=== PATIENT | male | born 1985 | race Caucasian/White ===

== ENCOUNTER 2016-10-08 10:56 | Emergency (ER) | payer OTHER ==
--- NOTE | ~2016-10-08 | US67 ---
[facility] A Service of [facility] & [facility] RADIOLOGY TEXT RESULTS PATIENT: LOLI BEAR III LOCATION: [facility] : 87 UNIT #: [id number] AGE: [address]: Ahmet Astudillo DO SEX: M ORDER DR: [id number] [facility] [address] [place], [place] [address] [id number] E MR#: [id number] Acc #: [id number] NAME: LOLI BEAR III : 1985 SEX: M STUDY DATE/TIME: 10/08/2016 15:19 UNIT: [facility] ROOM: STUDY DESCRIPTION: Gallbladder Attending Physician: Ahmet Astudillo D.O. Ordering Physician: Ahmet Astudillo D.O. Primary Care Physician: Primary Care Physician No MEDICAL IMAGING REPORT This report is preliminary unless electronic signature is present EXAM Ultrasound gallbladder, 10/08/2016 HISTORY Pain. Right upper quadrant pain, nausea and vomiting 2 months. Worse over the past 2 months. FINDINGS Real-time ultrasonography of the right upper quadrant performed. Comparison to CT examination from earlier on the same date. Visualized pancreas unremarkable but much of the pancreas is obscured by bowel gas artifact. Pancreas appeared normal on earlier CT examination. The liver is diffusely increased in echogenicity consistent with fatty infiltration as seen on earlier CT examination. No suspicious focal hepatic parenchymal abnormality is seen. The gallbladder is normal in volume. No gallstones or pericholecystic fluid. No gallbladder wall thickening. Gallbladder wall measures about 2.6 mm in thickness. No intrahepatic biliary ductal dilatation. [facility] has measured extrahepatic common duct as 5-6 mm in diameter. I believe this is an overestimation. The common bile duct on CT examination earlier today was normal in appearance measuring about 4 mm in diameter with no obstructing process seen and no intrahepatic biliary ductal dilatation. The right kidney measures 10.49 cm in greatest length. No hydronephrosis or nephrolithiasis. No cystic or solid mass lesion and no perinephric fluid collection. IMPRESSION 1. Please see today's earlier CT examination for additional evaluation. There is diffuse fatty infiltration of the liver without suspicious focal abnormality seen. 2. Gallbladder unremarkable. 3. There is no compelling evidence of biliary ductal dilatation. The sales audit clerk has measured the extrahepatic duct as approximately 5-6 STS. [facility] A Service of [facility] RADIOLOGY TEXT RESULTS PATIENT: LOLI BEAR III LOCATION: [facility] : 87 UNIT #: [id number] AGE: [address]: Ahmet Astudillo DO SEX: M ORDER DR: arcelia but I believe this is in accurate. CT examination performed approximately an hour earlier showed normal caliber extrahepatic duct at 4 mm in diameter with no obstructing process suggested. 4. Right kidney normal. 5. Visualized pancreas unremarkable with some portions obscured by bowel gas artifact. Pancreas appeared normal on earlier CT examination. Dictated by... Ishaan López M.D. THIS IS AN ELECTRONICALLY VERIFIED REPORT Ishaan López M.D. at 10/09/2016 2:37 PM YANNICK/john TD: 10/09/2016 04:54 JOB #: [id number] MEDICAL IMAGING REPORT Page 1 of 1 COPY
--- NOTE | ~2016-10-08 | CT2 ---
[facility] A Service of [facility] & [facility] RADIOLOGY TEXT RESULTS PATIENT: LOLI BEAR III LOCATION: [facility] : 87 UNIT #: [id number] AGE: [address]: Ahmet Astudillo DO SEX: M ORDER DR: [id number] [facility] [address] [place], [place] [address] [id number] E MR#: [id number] Acc #: [id number] NAME: LOLI BEAR III : 1985 SEX: M STUDY DATE/TIME: 10/08/2016 UNIT: [facility] ROOM: STUDY DESCRIPTION: CT Abd and Pelv W Cont Attending Physician: Ahmet Astudillo D.O. Ordering Physician: Ahmet Astudillo D.O. Primary Care Physician: Primary Care Physician No MEDICAL IMAGING REPORT This report is preliminary unless electronic signature is present EXAM CT abdomen and pelvis with contrast 10/08/2016 1358 hours HISTORY 31-year-old man with intermittent vomiting for 2 months. History of seizure disorder and large amount of alcohol consumption. Patient complains of bilateral abdominal pain worse on the left than on the right for 2 years. COMPARISON Abdominal series 05/17/2015. No prior CT scan. TECHNIQUE Dynamic helical CT images were obtained from the lung bases through the pubic symphysis with intravenous contrast only. Sagittal and coronal reconstructions were performed. Contrast was Isovue-370, 100 mL IV. Total exam DLP 478 mGy-cm. This CT exam was performed with one or more of the following radiation dose reduction techniques: automatic exposure control, adjustment of mA and/or kV according to patient size, and iterative reconstruction. FINDINGS Images through the lung bases are clear. There are no effusions. No nodules. The distal esophagus appears normal. Images through the abdomen demonstrate a normal-sized liver which is markedly low in density most likely representing diffuse fatty infiltration. The spleen is normal in size and density. The pancreas is normal. The gallbladder demonstrates no stones, sludge or wall thickening. The adrenal glands are normal. The kidneys enhance normally with no mass or stone. There is no ureterectasis. The abdominal aorta is normal in caliber. STS. [facility] A Service of [facility] & [facility] RADIOLOGY TEXT RESULTS PATIENT: LOLI BEAR III LOCATION: [facility] : 87 UNIT #: [id number] AGE: [address]: Ahmet Astudillo DO SEX: M ORDER DR: The stomach is contracted. No definite wall thickening is seen although evaluation is limited by the contracted state and the lack of oral contrast. There is no small bowel distension or small bowel wall thickening. The terminal ileum is normal. There is no evidence of appendicitis. There is no colonic distension or colonic wall thickening seen. The colon is predominately decompressed. CT pelvis is negative. IMPRESSION 1. There is marked diffuse low attenuation throughout the liver consistent with steatosis. No focal liver lesion is seen. 2. The gallbladder is mildly distended. There is no gallbladder wall thickening, sludge, stone or pericholecystic fluid. The bile ducts are normal. There is no splenomegaly or ascites. 3. The stomach, small bowel, and colon are predominately decompressed. The bowel is unopacified. There is no definite wall thickening seen. 4. No adenopathy or ascites. Dictated by... Sandra Chu M.D. THIS IS AN ELECTRONICALLY VERIFIED REPORT Sandra Cuh M.D. at 10/09/2016 9:31 AM Reyna TD: 10/08/2016 15:49 JOB #: [id number] MEDICAL IMAGING REPORT Page 1 of 1 COPY
[~2016-10-08 10:56] MED LIST: MEDROL PO; OMEPRAZOLE40 M1 PO; PREVACID PO
[2016-10-08 11:32] LABS: BASOPHIL% 0.5 % (0-2.5); EOSINOPHIL% 0.4 % (0.0-7.0); HEMATOCRIT 45.3 % (38.0-50.0); HEMOGLOBIN 15.4 gm/dL (13.0-16.0); LYMPHOCYTE% 13.4 % (17.0-45.0); MEAN CELL VOLUME 107.8 FL (83-96); MEAN CORPUSCULAR HEMOGLOBIN 36.7 PG (28-34); MEAN PLATELET VOLUME 8.1 FL (6.5-11.5); MONOCYTE# 0.5 X10e3 (0-1.0); MONOCYTE% 7.4 % (3.0-12.0); NEUTROPHIL# 5.7 X10e3 (1.5-7.1); NEUTROPHIL% 78.3 % (40-75); PLATELET COUNT 154 X10e3 (140-420); RED CELL DISTRIBUTION WIDTH 17.5 % (11.0-15.5); WHITE BLOOD COUNT 7.3 X10e3 (4.0-10.5)
[2016-10-08 11:33] LABS: DIFF IND YES
[2016-10-08 11:47] LABS: PARTIAL THROMBOPLASTIN TIME 25.9 SECONDS (23.5-31.3); PROTHROMBIN TIME (PATIENT) 10.8 SECONDS (9.6-11.5)
[2016-10-08 11:55] LABS: ANISOCYTOSIS SL; PLATELET ESTIMATE NORMAL (NORMAL); RBC NORMAL YES
[2016-10-08 12:14] LABS: URINE SOURCE CLEAN CATCH
[2016-10-08 12:14] LABS: BILIRUBIN, DIRECT 0.8 mg/dL (0.0-0.2); BILIRUBIN,INDIRECT 1.4 mg/dL (0.0-0.9); BILIRUBIN,TOTAL 2.2 mg/dL (0.2-2.0); CALCIUM SERUM 8.8 mg/dL (8.4-10.2); CREATININE SERUM 0.6 mg/dL (0.6-1.4); GLOM FILT RATE Estimated 135.9 mL/min (>60); MAGNESIUM 1.5 mg/dL (1.6-3.0); PROTEIN TOTAL SERUM 8.2 g/dL (6.0-8.3)
[2016-10-08 12:47] LABS: CULTURE INDICATED? YES; URINE APPEARANCE CLOUDY; URINE BACTERIA AUWI 1+ (NEGATIVE); URINE BLOOD NEG (NEG); URINE COLOR DK YELLOW; URINE GLUCOSE NEG (NEG); URINE KETONE 3+ (NEG); URINE LEUKOCYTE ESTERASE TRACE (NEG); URINE NITRATE NEG (NEG); URINE PROTEIN TRACE (NEG); URINE SPECIFIC GRAVITY 1.026 (1.003-1.035); URINE SQUAMOUS EPITHELIAL CELL FEW /[HPF]
[2016-10-08 13:01] LABS: URINE BILIRUBIN POS (NEG)
[2016-10-08 13:33] LABS: AMPHETAMINE NEG (NEG); BARBITURATES NEG (NEG); BENZODIAZEPINES NEG (NEG); COCAINE NEG (NEG); MARIJUANA POS (NEG); OPIATES NEG (NEG); TRICYCLIC ANTIDEPRESSANTS NEG (NEG); U METHADONE NEG (NEG)
[2016-10-08 17:14] LABS: POC - CKMB <1.0 ng/mL (0.0-7.9); POC - TROPONIN <0.05 ng/mL (<=0.05)
== END 2016-10-08 17:28 | disposition home or self-care (01) ==
LOC: CED 10:56
PROVIDERS: Emergency Medicine
DX: R10.11 Right upper quadrant pain (principal); E87.1 Hypo-osmolality and hyponatremia; I10 Essential (primary) hypertension; F10.10 Alcohol abuse, uncomplicated; B19.20 Unspecified viral hepatitis C without hepatic coma; F32.9 Major depressive disorder, single episode, unspecified; Y90.9 Presence of alcohol in blood, level not specified
CPT/HCPCS: 36415; 74177; 76705; 80048; 80076; 80307; 81003; 82553; 83690; 83735; 84484; 85025; 85610; 85730; 86850; 86900; 86901; 87086; 96361; 96365; 96375; 99284; J2405; J3475; Q9967

== ENCOUNTER 2016-12-25 09:27 | Inpatient (IN) | payer OTHER ==
--- NOTE | ~2016-12-25 | OR ---
Unit #: [id number] #: [id number] Patient: LOLI BEAR III [id number] [address] [address] [id number] I MR#: [id number] NAME: LOLI BEAR ROOM: 461 Date of Procedure: 12/26/2016 Admission Date: 12/25/2016 Surgeon: Edgar Nicholas M.D. : 1985 Attending Physician: Mercy Ferrari M.D. Primary Care Physician: Primary Care Physician No OPERATIVE REPORT PROCEDURE PERFORMED Esophagogastroduodenoscopy with biopsy. INDICATIONS FOR PROCEDURE The patient with hematemesis, history of heavy alcohol use, alcoholic hepatitis, possible cirrhosis. MEDICATIONS Monitored anesthesia. POSTOPERATIVE FINDINGS 1. LA grade B esophagitis with several small ulcers in the distal esophagus. 2. Hiatal hernia. 3. Severe gastropathy from chronic alcohol use. Biopsies taken looking for H pylori. 4. Normal duodenum and distal duodenum. PLAN Continue PPI therapy. Watch H and H. DESCRIPTION OF PROCEDURE The patient was explained of the procedure, risks, and benefits along with risks and benefits of anesthesia. He was brought to the endoscopy room. Propofol anesthesia was given. Bite block was placed. The scope was passed down the mouth into the esophagus, stomach, duodenum, and distal duodenum. Findings as described. Biopsies taken. Gently, I pulled the scope out of the patient's mouth. He tolerated it well. Dictated by... Abhay Vallejo/kendall TD: 12/26/2016 11:53 JOB #: [id number] Unit #: [id number] #: [id number] Patient: LOLI BEAR III OPERATIVE REPORT Page 1 of 1 X Edgar Nicholas MD PROCEDURE OPERATIVE NOTE
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
--- NOTE | ~2016-12-25 | US6 ---
[facility] A Service of [facility] RADIOLOGY TEXT RESULTS PATIENT: LOLI BEAR III LOCATION: [facility] 461- : 87 UNIT #: [id number] AGE: [address]: Karen Gomez MD SEX: M ORDER DR: [id number] [place] [id number] [facility]. [place], [place] [address] [id number] I MR#: [id number] Acc #: [id number] NAME: LOLI BEAR III : 1985 SEX: M STUDY DATE/TIME: 12/25/2016 14:19 UNIT: [facility] ROOM: [facility] STUDY DESCRIPTION: US Abdominal Limited Attending Physician: Karen Gomez M.D. Ordering Physician: Karen Gomez M.D. Primary Care Physician: Primary Care Physician No MEDICAL IMAGING REPORT This report is preliminary unless electronic signature is present EXAM Right upper quadrant ultrasound INDICATIONS Right upper quadrant pain for 1 week. TECHNIQUE Caraballo-scale and color Doppler sonographic images were obtained through the right upper quadrant. FINDINGS The pancreas cannot be seen due to overlying bowel gas. This also limits evaluation of structures within the right upper quadrant. Liver is enlarged and is steatotic which limits penetration. Stones and sludge are seen within the gallbladder and there is some gallbladder wall thickening measuring up to about 7 mm in thickness. I do not see any definite pericholecystic fluid. Right kidney is normal appearance with no solid or cystic renal masses seen. IMPRESSION 1. I think the patient does have some sludge within the gallbladder; this actually probably was present on the prior examination, but was more difficult to see. There is also some apparent gallbladder wall thickening with the gallbladder wall measuring up to about 7 mm in thickness, although I do not see any definite pericholecystic fluid. Possibility of acute cholecystitis cannot be excluded. Correlation with clinical presentation is suggested. HIDA scan could allow for further clarification. 2. Hepatomegaly and diffuse hepatic steatosis. Dictated by... Evelin Covarrubias M.D. [facility] A Service of [facility] RADIOLOGY TEXT RESULTS PATIENT: LOLI BEAR III LOCATION: [place] [address] : [birth year] UNIT #: [id number] AGE: [address]: Karen Gomez MD SEX: M ORDER DR: THIS IS AN ELECTRONICALLY VERIFIED REPORT Evelin Covarrubias M.D. at 12/26/2016 7:32 AM AFF/to TD: 12/25/2016 19:04 JOB #: [id number] MEDICAL IMAGING REPORT Page 1 of 1 COPY
--- NOTE | ~2016-12-25 | DS ---
Unit #: [id number] #: [id number] Patient: LOLI BEAR III [id number] [facility] [place] [facility]. [place], [place] [address] [id number] I MR#: [id number] NAME: LOLI BEAR III ROOM: 461 Age: 31 Sex: M Admission Date: 12/25/2016 : 1985 Discharge Date: 12/27/2016 Attending Physician: Mercy Ferrari M.D. Primary Care Physician: Primary Care Physician No DISCHARGE SUMMARY Please note, the patient left AMA. HISTORY OF PRESENT ILLNESS/HOSPITAL COURSE The patient was originally admitted secondary to nausea, vomiting, and abdominal pain. He is a 31-year-old gentleman with underlying history of hepatitis secondary to hepatitis C as well as alcohol abuse, and peptic ulcer disease. In the past, he has used IV drugs as well as substance abuse. He states over the past six months, he had an increased alcohol abuse secondary to difficulty with sleeping. He has drank an excessive amount for approximately 10 to 12 years. Please refer to H and P for complete details. He was subsequently admitted secondary to intractable abdominal pain and nausea. He underwent an ultrasound of his abdomen on 12/25/2016, which raise the possibility of some sludge within the gallbladder and HIDA scan was recommended, and therefore consultation was placed to both [facility] as well as [facility]. The patient ultimately underwent a HIDA scan on the morning of 12/27/2016, which showed an abnormal HIDA scan with nonvisualization of the gallbladder. Findings could represent either acute or chronic cholecystitis. In regard to the same, [facility] were set to reevaluate the patient. Ultimately, the patient elected that he did not want any surgeries; no longer wanted any medical care; stated that he could go home and drink coconut water and take some vitamins and he would feel much better. Also noted through this hospital course, the patient had undergone an ultrasound and upper GI endoscopy, which did show severe gastropathy from chronic alcohol use, esophagitis as well, and a hiatal hernia was noted. Unfortunately, the patient elected to leave AMA on the afternoon of 01/05/2017 after extensive counseling in regard to his overall condition. He did exhibit severe anxiety and evidence of some withdrawal symptoms secondary to alcohol abuse. Again, he was counseled on numerous occasions to stay for ongoing therapy, but he elected to leave against medical advice. Unit #: [id number] #: [id number] Patient: LOLI BEAR III FINAL DISCHARGE DIAGNOSES 1. Acute/chronic cholecystitis. 2. Alcohol abuse. 3. Anxiety/depression. 4. Abdominal pain. 5. Nausea and vomiting. 6. Prior history of substance abuse. 7. Hepatitis C. 8. Prior history of IV drug abuse. DISCHARGE MEDICATIONS Unknown as the patient left AMA. CONDITION ON DISCHARGE Overall long-term prognosis of this patient is poor as he lacks insight into his disease process as well as the severity of his drinking and/or alcohol abuse. Dictated by... Abhay Mcginnis/kendall TD: 12/30/2016 08:07 JOB #: [id number] DISCHARGE SUMMARY Page 1 of 1 X Mercy Ferrari MD X DISCHARGE SUMMARY
--- NOTE | ~2016-12-25 | HP ---
Unit #: [id number] #: [id number] Patient: LLOI BEAR III [id number] [place], [place] [address] [id number] MR#: [id number] NAME: LOLI BEAR III ROOM: Age: 31 Sex: M Admission Date: 12/25/2016 : 1985 Attending Physician: Tam Kang M.D. Primary Care Physician: No Primary Care Physician HISTORY AND PHYSICAL CHIEF COMPLAINT Nausea, vomiting, abdominal pain. HISTORY OF PRESENT ILLNESS The patient is a 31-year-old male with a past medical history of hepatitis secondary to hepatitis C and alcohol abuse, peptic ulcer disease, IV drug use. He presented to the emergency department for evaluation of the above. The patient states that he had a two to three month history of abdominal pain and vomiting. He describes the abdominal pain as "bloating." He states that he vomited bright red blood. He denies any blood in the stool or black tarry stool. No diarrhea. No change in his weight. He initially denied endoscopy, but it sounds like he may have had some type of scope 10 years ago when he was diagnosed with peptic ulcer disease and underwent some type of surgical repair for perforated peptic ulcer. Of note, the patient is a daily drinker. He states that he has cut back from drinking a fifth of alcohol daily to drinking four 25 ounce beers daily. His last drink was on the morning of admission, around 3 a.m. In the emergency department initial pulse and blood pressure were 100 and 123/86 respectively. He was noted to be Hemoccult positive. Hemoglobin is 14.4. Platelets are 121. Ammonia level is 64. Potassium is 2.8, AST and ALT are 229 and 66 respectively. Alkaline phosphatase is 221. Total bilirubin 11.7. He was given 1 liters of normal saline as well as thiamine, multivitamin, folic acid and 1 mg of Ativan. Additionally he received 80 mg of Protonix and a total of 50 mEq of potassium. He has been admitted to [facility] for evaluation and further treatment. PAST MEDICAL HISTORY 1. Admission to [facility] 07/24/2015 through 07/26/2015 for alcohol detox. 2. History of peptic ulcer disease. Hospitalized at [facility] about 10 years ago. 3. Hepatitis secondary to hepatitis C and alcohol abuse. PAST SURGICAL HISTORY 1. Surgical repair perforated peptic ulcer. 2. Wrist surgery. SOCIAL HISTORY The patient livers with a roommate. He was drinking a fifth of alcohol daily, but states that he cut back over the past month to four 25 ounce Unit #: [id number] #: [id number] Patient: LOLI BEAR III beers daily. He has a history of IV drug use including heroin, but states his last IV drug use was 18 months ago. He states that he does smoke marijuana occasionally. 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 He smokes three to four cigarettes daily. FAMILY HISTORY Notable for his mother dying at the age of 39 of alcoholic cirrhosis. His dad has hepatitis C and hypertension. ALLERGIES No known drug allergies. HOME MEDICATIONS None. REVIEW OF SYSTEMS A complete review of systems is negative except as indicated in the history of present illness. PHYSICAL EXAMINATION GENERAL: The patient is a male who is awake and alert. He appears older than his stated age. He smells of alcohol. VITALS: Temperature 98.3, pulse 100, respiratory rate 16, blood pressure 123/86, oxygen saturation 100% on room air. HEENT: The head is atraumatic. Sclerae are icteric. NECK: Supple. Trachea midline. LUNGS: Clear to auscultation bilaterally with no increased work of breathing. HEART: Regular rate and rhythm. ABDOMEN: Soft. He is tender to palpation epigastric region. Bowel sounds are present in all four quadrants. RECTAL: Hemoccult positive per my discussion with the emergency room staff. EXTREMITIES: Nontender with no pedal edema. NEUROLOGIC: The patient is oriented times three. He follows commands. PSYCHIATRIC: The patient is somewhat anxious, but he is cooperative. SKIN: Spider angiomata involving the upper chest. DIAGNOSTIC STUDIES LABORATORY: CMP notable for sodium 128, potassium 2.8, chloride 86 (1) 33. BUN and creatinine less than 5 and 0. 5 respectively. Calcium 7. 9, but corrects when albumin of 2. 7 is accounted for. AST and ALT are 279 and 66 respectively. Alkaline phosphatase is 221, total bilirubin 11.7 with 6.1 direct and 5.6 indirect. Lipase is 25. Blood alcohol level is 61. CBC notable for MCV 102.7, platelets 121, ammonia level 64. Urinalysis shows 1+ leukocyte esterase, positive nitrate, trace protein, positive bile, 1+ blood with 10-25 white blood cells. ASSESSMENT The patient is a 31-year-old male with 1. GI bleed. The patient's hemoglobin is 14.4. He received 80 mg of Protonix in the emergency department. He likely had endoscopy about 10 years ago at [facility]. 2. Abdominal pain. 3. Hepatitis secondary to alcohol abuse and hepatitis C. 4. Jaundice with total bilirubin of 11.7. 5. Hepatic encephalopathy with an ammonia level of 64. 6. Thrombocytopenia with a platelet count of 121. Platelets have Unit #: [id number] #: [id number] Patient: LOLI BEAR III previously been normal. 7. Alcohol abuse with last drink being this morning. 8. The patient does have a history of withdrawal seizures. 9. History of IV drug use with last use being 18 months ago. 10. History of peptic ulcer disease. 11. Tobacco abuse. PLAN 1. Admit to intermediate level. 2. N.p.o. except for medications. 3. Protonix drip at 8 mg per hour. 4. Hemoglobin and hematocrit q.[address] Nicholas regarding GI bleed. 6. Get endoscopy report from [facility]. 7. Librium 25 mg p.o. q.6 h. with first dose now. 8. Alcohol withdrawal protocol. 9. community association manager and social work consult regarding alcohol abuse. 10. Right upper quadrant ultrasound for further evaluation of jaundice and hepatitis. 11. Lactulose 30 ml q.4 h. 12. Check magnesium level. 13. Potassium/magnesium protocol. 14. Urine tox screen. 15. Neurologic checks. 16. P.r.n. Zofran. 17. Repeat labs in the morning, including INR, magnesium and ammonia levels. 18. SCDs for DVT prophylaxis. 19. Additional workup and consultants based on the above. Dictated by Karen Gomez M.D. Sally TD: 12/25/2016 13:58 JOB #: [id number] HISTORY AND PHYSICAL Page 1 of 1 X Karen Gomez MD X HISTORY AND PHYSICAL
--- NOTE | ~2016-12-25 | NM22 ---
[facility] A Service of [facility] RADIOLOGY TEXT RESULTS PATIENT: LOLI BEAR III LOCATION: [place] [address] : [birth year] UNIT #: [id number] AGE: [address]: Mercy Ferrari MD SEX: M ORDER DR: [id number] [place] [id number] [facility]. [place], [place] [address] [id number] I MR#: [id number] #: [id number] NAME: LOLI BEAR III : 1985 SEX: M STUDY DATE/TIME: 12/27/2016 7:42 UNIT: [facility] ROOM: [facility] STUDY DESCRIPTION: NM Hepatobiliary W GB Pharm Attending Physician: Mercy Ferrari M.D. Ordering Physician: Doe Trujillo M.D. Primary Care Physician: Primary Care Physician No MEDICAL IMAGING REPORT This report is preliminary unless electronic signature is present EXAM Hepatobiliary scan HISTORY 31-year-old male bloating for 1-1/2 weeks, vomiting, diarrhea for the last 2-3 days. COMPARISON Abdominal sonogram, 12/25/2016 FINDINGS Dynamic imaging was performed of the right upper quadrant following the intravenous administration of 5.42 mCi technetium 99m Choletec. Examination demonstrates normal hepatic uptake at 15 minutes. Small bowel activity noted at 45 minutes. Non-visualization of the gallbladder out to 2 hours. Findings nonspecific but in the appropriate clinical setting would be compatible with acute cholecystitis. Similar findings could also be seen with chronic cholecystitis. No evidence of biliary obstruction. IMPRESSION Abnormal hepatobiliary scan with non-visualization of the gallbladder out to 2 hours. Though nonspecific, findings could represent either acute or chronic cholecystitis in the appropriate clinical setting. No evidence of biliary obstruction or hepatic dysfunction. Dictated by... Erin Hatfield M.D. THIS IS AN ELECTRONICALLY VERIFIED REPORT Erin Hatfield M.D. at 12/31/2016 9:29 AM Sherlyn [facility] A Service of [facility] RADIOLOGY TEXT RESULTS PATIENT: LOLI BEAR III LOCATION: [facility] 461-01 : [birth year] UNIT #: [id number] AGE: [address]: Mercy Ferrari MD SEX: M ORDER DR: TD: 12/27/2016 13:07 JOB #: [id number] MEDICAL IMAGING REPORT Page 1 of 1 COPY
[2016-12-25 11:05] LABS: BASOPHIL% 0.8 % (0-2.5); EOSINOPHIL# 0.1 X10e3 (0-0.7); EOSINOPHIL% 1.2 % (0.0-7.0); HEMATOCRIT 40.8 % (38.0-50.0); HEMOGLOBIN 14.4 gm/dL (13.0-16.0); LYMPHOCYTE# 1.2 X10e3 (1.0-3.5); LYMPHOCYTE% 20.4 % (17.0-45.0); MEAN CELL VOLUME 102.7 FL (83-96); MEAN CORPUSCULAR HEMOGLOBIN 36.3 PG (28-34); MEAN CORPUSCULAR HGB CONC 35.3 g/dL (30-36); MEAN PLATELET VOLUME 8.4 FL (6.5-11.5); MONOCYTE# 0.7 X10e3 (0-1.0); MONOCYTE% 11.6 % (3.0-12.0); NEUTROPHIL# 3.8 X10e3 (1.5-7.1); RED BLOOD COUNT 3.97 X10e (3.90-5.60); RED CELL DISTRIBUTION WIDTH 15.4 % (11.0-15.5); WHITE BLOOD COUNT 5.8 X10e3 (4.0-10.5)
[2016-12-25 11:20] LABS: ALBUMIN SERUM 2.7 g/dL (3.5-5.0); ALKALINE PHOSPHATASE 221 U/L (32-92); ALT (SGPT) 66 U/L (10-40); AST (SGOT) 279 U/L (10-42); BILIRUBIN, DIRECT 6.1 mg/dL (0.0-0.2); BILIRUBIN,INDIRECT 5.6 mg/dL (0.0-0.9); BILIRUBIN,TOTAL 11.7 mg/dL (0.2-2.0); CALCIUM SERUM 7.9 mg/dL (8.4-10.2); CARBON DIOXIDE 33 mmol/L (22-31); CHLORIDE 80 mmol/L (100-111); CREATININE SERUM 0.5 mg/dL (0.6-1.4); GLOM FILT RATE Estimated 146.5 mL/min (>60); GLUCOSE FASTING 100 mg/dL (70-110); LIPASE 25 U/L (22-51); PROTEIN TOTAL SERUM 7.6 g/dL (6.0-8.3); SODIUM 128 mmol/L (135-145)
[2016-12-25 11:22] LABS: BLOOD UREA NITROGEN <5 mg/dL (9-23)
[2016-12-25 11:23] LABS: POTASSIUM 2.8 mmol/L (3.5-5.1)
[2016-12-25 11:27] LABS: URINE SOURCE CLEAN CATCH
[2016-12-25 11:31] LABS: URINE APPEARANCE CLOUDY; URINE BLOOD 1+ (NEG); URINE COLOR ORANGE; URINE GLUCOSE NEG (NEG); URINE KETONE NEG (NEG); URINE LEUKOCYTE ESTERASE 1+ (NEG); URINE NITRATE POS (NEG); URINE PH 5.5 (5-8); URINE PROTEIN TRACE (NEG); URINE SPECIFIC GRAVITY 1.015 (1.003-1.035)
[2016-12-25 11:34] LABS: CULTURE INDICATED? YES; URINE BACTERIA AUWI NEG (NEGATIVE); URINE SQUAMOUS EPITHELIAL CELL NONE SEEN /[HPF]
[2016-12-25 11:35] LABS: DIFF IND YES; PLATELET COUNT 121 X10e3 (140-420)
[2016-12-25 11:52] LABS: ANISOCYTOSIS SL; PLATELET ESTIMATE DECREASED (NORMAL)
[2016-12-25 11:53] LABS: TARGET CELLS SL
[2016-12-25 11:54] LABS: SMUDGE CELLS 15 /100
[2016-12-25 12:04] LABS: URINE BILIRUBIN POS (NEG)
[2016-12-25 12:07] LABS: URINE MUCUS PRESENT
[2016-12-25 12:09] LABS: U HYALINE CASTS AUWI 0-2 /[LPF]
[2016-12-25] MEDS ORDERED: NO MEDICATIONS (12:44)
[2016-12-25 16:11] LABS: AMPHETAMINE NEG (NEG); BARBITURATES NEG (NEG); BENZODIAZEPINES POS (NEG); COCAINE NEG (NEG); MARIJUANA POS (NEG); OPIATES NEG (NEG); TRICYCLIC ANTIDEPRESSANTS NEG (NEG); U METHADONE NEG (NEG)
[2016-12-25 17:35] LABS: HEMATOCRIT 38.5 % (38.0-50.0); HEMOGLOBIN 13.3 gm/dL (13.0-16.0)
[2016-12-25 19:55] LABS: THYROID STIMULATING HORMONE 2.57 uIU/ml (0.34-5.60)
[2016-12-25 20:02] LABS: FREE THYROXIN (T4) 1.07 ng/dL (0.58-1.64)
[2016-12-25 22:29] LABS: HEMATOCRIT 39.4 % (38.0-50.0); HEMOGLOBIN 13.4 gm/dL (13.0-16.0)
[2016-12-26 03:10] LABS: ALBUMIN SERUM 2.3 g/dL (3.5-5.0); ALKALINE PHOSPHATASE 187 U/L (32-92); ALT (SGPT) 56 U/L (10-40); AST (SGOT) 230 U/L (10-42); BILIRUBIN,TOTAL 12.8 mg/dL (0.2-2.0); BLOOD UREA NITROGEN <5 mg/dL (9-23); CALCIUM SERUM 7.3 mg/dL (8.4-10.2); CARBON DIOXIDE 32 mmol/L (22-31); CHLORIDE 93 mmol/L (100-111); CREATININE SERUM 0.4 mg/dL (0.6-1.4); GLOM FILT RATE Estimated 160.6 mL/min (>60); GLUCOSE FASTING 141 mg/dL (70-110); MAGNESIUM 1.6 mg/dL (1.6-3.0); PROTEIN TOTAL SERUM 6.8 g/dL (6.0-8.3); SODIUM 131 mmol/L (135-145)
[2016-12-26 04:36] LABS: BASOPHIL% 0.7 % (0-2.5); EOSINOPHIL# 0.1 X10e3 (0-0.7); EOSINOPHIL% 2.7 % (0.0-7.0); HEMATOCRIT 37.1 % (38.0-50.0); HEMOGLOBIN 12.7 gm/dL (13.0-16.0); LYMPHOCYTE# 0.7 X10e3 (1.0-3.5); MEAN CELL VOLUME 105.3 FL (83-96); MEAN CORPUSCULAR HGB CONC 34.1 g/dL (30-36); MEAN PLATELET VOLUME 8.9 FL (6.5-11.5); MONOCYTE# 0.4 X10e3 (0-1.0); MONOCYTE% 10.4 % (3.0-12.0); NEUTROPHIL# 2.7 X10e3 (1.5-7.1); NEUTROPHIL% 69.2 % (40-75); RED BLOOD COUNT 3.52 X10e (3.90-5.60); RED CELL DISTRIBUTION WIDTH 15.4 % (11.0-15.5); WHITE BLOOD COUNT 3.9 X10e3 (4.0-10.5)
[2016-12-26 04:49] LABS: INR 1.5; PROTHROMBIN TIME (PATIENT) 16.6 SECONDS (10.0-11.7)
[2016-12-26 04:52] LABS: DIFF IND YES; PLATELET COUNT 80 X10e3 (140-420)
[2016-12-26 04:54] LABS: ANISOCYTOSIS SL; PLATELET ESTIMATE DECREASED (NORMAL); SMUDGE CELLS 3 /100
[2016-12-26 10:14] LABS: HEMATOCRIT 38.4 % (38.0-50.0); HEMOGLOBIN 13.2 gm/dL (13.0-16.0)
[2016-12-26 16:25] LABS: HEMOGLOBIN 13.2 gm/dL (13.0-16.0)
[2016-12-26 17:47] LABS: FOLATE (FOLIC ACID) >23.3 ng/mL (>5.8)
[2016-12-27 03:23] LABS: BASOPHIL% 0.6 % (0-2.5); EOSINOPHIL# 0.1 X10e3 (0-0.7); EOSINOPHIL% 3.1 % (0.0-7.0); HEMATOCRIT 35.9 % (38.0-50.0); HEMOGLOBIN 12.3 gm/dL (13.0-16.0); LYMPHOCYTE# 0.8 X10e3 (1.0-3.5); LYMPHOCYTE% 19.7 % (17.0-45.0); MEAN CELL VOLUME 105.6 FL (83-96); MEAN CORPUSCULAR HEMOGLOBIN 36.2 PG (28-34); MEAN CORPUSCULAR HGB CONC 34.3 g/dL (30-36); MEAN PLATELET VOLUME 8.8 FL (6.5-11.5); MONOCYTE# 0.5 X10e3 (0-1.0); MONOCYTE% 12.1 % (3.0-12.0); NEUTROPHIL# 2.6 X10e3 (1.5-7.1); NEUTROPHIL% 64.5 % (40-75); PLATELET COUNT 83 X10e3 (140-420); RED CELL DISTRIBUTION WIDTH 15.4 % (11.0-15.5)
[2016-12-27 03:26] LABS: DIFF IND NO
[2016-12-27 03:57] LABS: ALBUMIN SERUM 2.2 g/dL (3.5-5.0); ALKALINE PHOSPHATASE 170 U/L (32-92); ALT (SGPT) 45 U/L (10-40); AST (SGOT) 166 U/L (10-42); BILIRUBIN,TOTAL 11.7 mg/dL (0.2-2.0); CALCIUM SERUM 7.1 mg/dL (8.4-10.2); CARBON DIOXIDE 27 mmol/L (22-31); CHLORIDE 101 mmol/L (100-111); CREATININE SERUM 0.3 mg/dL (0.6-1.4); GLOM FILT RATE Estimated 180.7 mL/min (>60); GLUCOSE FASTING 142 mg/dL (70-110); LIPASE 23 U/L (22-51); MAGNESIUM 1.8 mg/dL (1.6-3.0); PHOSPHOROUS 1.4 mg/dL (2.5-4.6); PROTEIN TOTAL SERUM 6.5 g/dL (6.0-8.3); SODIUM 133 mmol/L (135-145)
[2016-12-27 03:59] LABS: BLOOD UREA NITROGEN <5 mg/dL (9-23); BUN/CREATININE RATIO 16.66
[2016-12-27 04:01] LABS: AMYLASE 6 U/L (0-46); POTASSIUM 2.6 mmol/L (3.5-5.1)
== END 2016-12-27 17:21 | disposition left against medical advice (07) | DRG 445 ==
LOC: CED 09:27 → C4C 13:30 → CEDOF 13:30 → CED 14:04 → CEDOF 14:04 → C4C 16:05
PROVIDERS: Emergency Medicine; Family Medicine; Internal Medicine; Specialist
PROC: 0DB68ZX Excision of Stomach, Via Natural or Artificial Opening Endoscopic, Diagnostic (ICD-10-PCS; principal; 2016-12-26 11:07)
DX: K81.0 Acute cholecystitis (principal); K22.10 Ulcer of esophagus without bleeding; D69.59 Other secondary thrombocytopenia; K70.30 Alcoholic cirrhosis of liver without ascites; F10.239 Alcohol dependence with withdrawal, unspecified; K81.1 Chronic cholecystitis; F41.9 Anxiety disorder, unspecified; F32.9 Major depressive disorder, single episode, unspecified; F10.20 Alcohol dependence, uncomplicated; F12.10 Cannabis abuse, uncomplicated; F17.210 Nicotine dependence, cigarettes, uncomplicated; Z81.1 Family history of alcohol abuse and dependence; Z82.49 Family history of ischemic heart disease and other diseases of the circulatory system; K72.90 Hepatic failure, unspecified without coma; K44.9 Diaphragmatic hernia without obstruction or gangrene; K31.84 Gastroparesis; K70.10 Alcoholic hepatitis without ascites; E87.6 Hypokalemia
CPT/HCPCS: 36415; 76705; 78227; 80048; 80053; 80076; 80307; 81003; 82140; 82150; 82607; 82746; 82747; 83690; 83735; 84100; 84132; 84439; 84443; 85014; 85018; 85025; 85610; 86592; 87086; 88305; 88312; 96365; 96375; 99291; A9537; C9113; G0480; J2060; J2250; J2405; J3411; J3475; J7042

== ENCOUNTER 2017-01-05 21:03 | Inpatient (IN) | payer OTHER ==
[~2017-01-05] VITALS: Ht 172.7 cm; Wt 76.0 kg
--- NOTE | ~2017-01-05 | HP ---
Unit #: [id number] #: [id number] Patient: LOLI BEAR III [id number] [place] [id number] [facility]. [place], [place] [address] [id number] I MR#: [id number] NAME: LOLI BEAR ROOM: [address] Age: 31 Sex: M Admission Date: 01/05/2017 : 1985 Attending Physician: Baljinder Castaneda M.D. Primary Care Physician: Rina Davishead HISTORY AND PHYSICAL CHIEF COMPLAINT Shortness of breath, hypotension, abdominal pain, shortness of breath. DISCUSSION This is a 31-year-old gentleman who has a past medical history of hepatitis, secondary to hepatitis C, alcohol abuse, peptic ulcer disease, anxiety, depression, previous history of substance abuse. He was recently admitted here on 12/25/2016 with chief complaint of nausea, vomiting, and abdominal pain. The patient subsequently had a workup ultrasound on 12/25/2016, which shows the possibility of some sludge within the gallbladder. Also on HIDA scan on 12/27/2016, which showed abnormal HIDA scan with nonvisualization of gallbladder, findings consistent with either acute or chronic cholecystitis and he also has an EGD by Dr. Nicholas, which shows that patient has esophagitis, a small ulcer in the distal esophagus, hiatal hernia, severe gastropathy, unfortunately the patient left the hospital against medical advice on 12/27/2016. He presented today to the emergency room by EMS with chief complaint of having not feeling very well, shortness of breath, abdominal pain, hypotension, disease, falling. He was found to be hypotensive, started on Neosporin drip. Belly is distended. His whole body looks icterus and being admitted in the ICU. The patient has already been seen by Dr. Riddle from critical care consult, which I appreciated and patient is going to be admitted to ICU. He is complaining of shortness of breath. At this time he is on Ventimask, oxygen, but he is alert, awake x3, answering the questions. He is complaining of shortness of breath, abdominal pain, abdominal distention, chest pain and generalized feeling weak, fatigued, tired, fell at home with near syncope. He said he drank only half a beer today. PAST MEDICAL HISTORY 1. History of admission to [facility] in 08/09/2015 for alcohol tox. 2. History of peptic ulcer disease. 3. History of hepatitis secondary to hepatitis C and alcohol abuse. 4. History of anxiety and depression. 5. History of substance abuse. 6. Recent HIDA scan on 12/27/2016 shows acute versus chronic cholecystitis. 7. EGD on 12/26/2016, shows esophagitis and a small ulcer in the distal esophagus/hiatal hernia/severe gastropathy from chronic ETOH abuse. PAST SURGICAL HISTORY 1. History of surgical repair for perforated peptic ulcer. 2. Wrist surgery. Unit #: [id number] #: [id number] Patient: LOLI BEAR III SOCIAL HISTORY The patient lives with a roommate. He was drinking a fifth of alcohol daily. He had been drinking excessive alcohol for the last 10 to 12 years. He had a history of IV drug use including heroin in the past but he says he has not been using for 18 months. He stated that he does smoke marijuana occasionally and smokes 3 to 4 cigarettes daily. 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 FAMILY HISTORY Notable for mother dying at age 39 of alcohol cirrhosis. She does have hepatitis C and hypertension. ALLERGIES No known drug allergy. HOME MEDICATIONS Review of systems negative, except for history of present illness. PHYSICAL EXAMINATION GENERAL: Young man lying in mild respiratory distress. male who is alert, awake, appeared older than his age. VITAL SIGNS: Current vitals are following: Temperature 97.5, heart rate 111, respiratory rate 16, blood pressure is 77/52, oxygen is at 88% on 4 L. HEENT: Head is atraumatic. Sclerae icteric. Whole body skin is icteric. NECK: Supple. No JVD. LUNGS: Decreased air entry bilaterally. HEART: S1, S2, regular rate and rhythm. ABDOMEN: Distended. Diffuse tenderness. Decrease bowel sound. EXTREMITIES: No cyanosis, no clubbing, no edema. NEUROLOGIC: He is alert and oriented x4. He is following commands. Moving extremities. SKIN: Spider angiomata involving the upper chest wall. PSYCH: Normal mood and affect. DIAGNOSTIC STUDIES IMAGING STUDIES: CT scan of abdomen shows hepatomegaly, splenomegaly, ascites. in the gallbladder, suspected gallbladder sludge. CT chest shows large bilateral pleural effusions. LABORATORY STUDIES: Today is following: His white count is 4, hemoglobin 12, hematocrit 36, platelet is 126. Troponin is less than 0.0. ABG shows pH 7.34, pO2 63, oxygen is 87% saturation. Other blood test is pending at the time of dictation. ASSESSMENT AND PLAN 1. Jaundice. 2. Hypotension, possible sepsis. 3. Will continue Neosporin drip. Start empirically on the IV Zosyn. 4. Questionable peritonitis with ascites. 5. Large bilateral pleural fluid effusion. 6. Acute hypoxia. Continue oxygen to keep respiratory mode a 90. 7. Recent abdominal HIDA scan, acute versus chronic cholecystitis. Start the patient on IV Zosyn. 8. History of hepatitis secondary to hepatitis C. 9. Alcohol abuse. Unit #: [id number] #: [id number] Patient: LOLI BEAR III 10. Peptic ulcer disease. 11. Anxiety and depression. 12. Previous history of polysubstance abuse. 13. History of recent EGD on 12/26/2016. 14. Esophagitis with similar ulcer in distal esophagus/hiatal hernia/severe gastropathy from chronic alcohol abuse. PLAN To admit in the ICU and the critical care consult per Dr. Riddle, which has already been done and patient to continue Neosporin drip, oxygen to keep saturations more than 90 and also GI, Dr. Nicholas to see and evaluate. REPORT FAXED TO DR. CASTANEDA'S OFFICE ON 01/06/17 FOR COMPLETION. CD Dictated by Abhay Canales/giovanny TD: 01/06/2017 05:48 JOB #: [id number] HISTORY AND PHYSICAL Page 1 of 1 X X HISTORY AND PHYSICAL
--- NOTE | ~2017-01-05 | CO ---
Unit #: [id number] #: [id number] Patient: LOLI BEAR III [id number] [place] [id number] [facility]. [place], [place] [address] [id number] I MR#: [id number] NAME: LOLI BEAR ROOM: CICCU3 Age: 31 Sex: M Admission Date: 01/05/2017 : 1985 Attending Physician: Rex Cooper Primary Care Physician: Rina Gold [facility] Consultation Date: 01/05/2017 CONSULTATION REPORT We were asked to see him through Dr. Sharp. The reason is intensive care management and hypotension. HISTORY OF PRESENT ILLNESS Mr. Bear is a 31-year-old male, who apparently just left here AMA on 12/28/2016. He was originally admitted for hepatitis and 3-month history of abdominal pain, vomiting and "bloating." He had vomited some blood, but he did have an EGD by Dr. Nicholas and this revealed no varices, but he did have grade B esophagitis and some ulcers in the distal esophagus. He apparently was upset because he perceived that somebody was going to make him go to [facility] and he left AMA. He now comes back with recurrent complaints of abdominal discomfort and just feeling poorly. He has a history of hepatitis C. He previously drank, he said, about a fifth of vodka daily until 2 months ago and now just drinks 2 beers a day. He has had some nausea and vomiting. He did not say whether he was changing skin colors. PAST MEDICAL HISTORY Significant for IV drug use, alcoholism as mentioned, peptic ulcer disease, hepatitis C as mentioned. PAST SURGICAL HISTORY Includes surgical repair of a perforated peptic ulcer and wrist surgery. MEDICATIONS On admission apparently none. ALLERGIES I believe no known drug allergies. SOCIAL HISTORY He was smoking cigarette and apparently would smoke marijuana occasionally. He previously smoked a few cigarettes a day. FAMILY HISTORY Significant for cirrhosis in his mother and apparently she at age 39. REVIEW OF SYSTEMS He has leg swelling. He has abdominal swelling. He has shortness of air. All other systems are negative except as mentioned. PHYSICAL EXAMINATION GENERAL: He presents as a young middle-aged male, in no acute distress, but looking ill. Unit #: [id number] #: [id number] Patient: BEAR,LOLI E III VITAL SIGNS: Temperature is forthcoming, pulse 110, respirations 16, blood pressure 186/46. Saturation was 90% on 5 L. NECK: Without adenopathy. LUNGS: Reveals his breathing is mildly labored. He had decreased breath sounds bilaterally, particularly left base. HEART: Tachycardic. ABDOMEN: Protuberant. Bowel sounds are present. He does have some punctate petechial type lesions on his abdomen. EXTREMITIES: With about 1+ edema. SKIN: Yellow. His sclerae are yellow. NEUROLOGIC: He is awake, and answers questions. DIAGNOSTIC STUDIES LABORATORY RESULTS: His PT was 16.6, INR 1.5. His blood gas; 7.34, pCO2 of 35, pO2 of 63. BMP; his potassium of 2.6, his BUN less than 5, creatinine 0.3. His white blood cell count was 4.4, H and H 12.5, and 36, platelets 126,000. IMAGING STUDIES: Chest x-ray to my exam reveals low lung volumes bilaterally. He has what appears to be a left pleural effusion. I am not sure that he really has an infiltrate. IMPRESSION 1. Hypotension. Etiology is uncertain, but I think the best bet would be an infection and if so, would consider spontaneous bacterial peritonitis. This is based on his appearance of the abdomen. 2. Jaundice. 3. Alcoholism. 4. Hepatitis C. PLAN I would go ahead and continue the Zosyn that was started. I think that should cover for SBP. He probably is going to need some pressors. We can try cecille. I ultimately would like to see a paracentesis if indeed he has ascites. Right now, I think we can just titrate up his FiO2. I do not think he needs BiPAP because his pCO2 really is not elevated. So, it is just a matter of titrating his oxygen. I think his outlook is going to be poor if he cannot completely quit drinking and be compliant. Thank you very much for allowing me to participate in the care of this patient. Dictated by... Abhay Blackwell/kendall TD: 01/07/2017 00:00 JOB #: [id number] CC: Baljinder Sharp M.D. Unit #: [id number] #: [id number] Patient: LOLI BEAR III CONSULTATION REPORT Page 1 of 1 X Sergio Riddle MD CONSULTATION REPORT
--- NOTE | ~2017-01-05 | CT57 ---
[facility] A Service of [facility] RADIOLOGY TEXT RESULTS PATIENT: LOLI BEAR III LOCATION: CICCU3 CICCU3- : [birth year] UNIT #: [id number] AGE: [address]: LISA PETE V SEX: M ORDER DR: [id number] [facility] [address] [facility]. [place], [place] [address] [id number] I MR#: [id number] Acc #: [id number] NAME: LOLI BEAR III : 1985 SEX: M STUDY DATE/TIME: 01/05/2017 22:06 UNIT: CEDOF ROOM: 40004 STUDY DESCRIPTION: CT Chest Wo Cont Attending Physician: Lisa Pete Ordering Physician: Ahmet Astudillo D.O. Primary Care Physician: Rina Gold [facility] MEDICAL IMAGING REPORT This report is preliminary unless electronic signature is present EXAM CT chest without contrast INDICATION Generalized abdominal pain and shortness of air today. PROCEDURE Unenhanced CT of the chest. This CT exam was performed with one or more of the following radiation dose reduction techniques: Automatic exposure control, adjustment of mA and/or kV according to patient size, and iterative reconstruction. COMPARISON None. FINDINGS Large bilateral pleural effusions. Likely atelectasis in both lung bases, infiltrate not completely excluded. Cardiomegaly. No adenopathy. No aggressive appearing bone lesion. IMPRESSION 1. Large bilateral pleural effusions with opacity in both lung bases probably compressive atelectasis but infiltrate not completely excluded. 2. Refer to the separately dictated abdomen and pelvis CT for findings below the diaphragm. Dictated by... Devendra Pascual M.D. THIS IS AN ELECTRONICALLY VERIFIED REPORT Devendra Pascual M.D. at 01/06/2017 10:[address] [facility] A Service [facility] RADIOLOGY TEXT RESULTS PATIENT: LOLI BEAR III LOCATION: CICCUMary CICCU3- : [birth year] UNIT #: [id number] AGE: [address]: LISA PETE V SEX: M ORDER DR: Boyd TD: 01/06/2017 09:43 JOB #: [id number] MEDICAL IMAGING REPORT Page 1 of 1 COPY
--- NOTE | ~2017-01-05 | CR72 ---
[facility] A Service of [facility] RADIOLOGY TEXT RESULTS PATIENT: LOLI BEAR III LOCATION: CEDOF [address]-01 : [birth year] UNIT #: [id number] AGE: [address]: Baljinder Sharp MD SEX: M ORDER DR: [id number] [facility] [address] [place], [place] [address] [id number] I MR#: [id number] Acc #: [id number] NAME: LOLI BEAR III : 1985 SEX: M STUDY DATE/TIME: 01/05/2017 21:23 UNIT: CEDOF ROOM: 65[address] STUDY DESCRIPTION: CR Chest Single View Portable Attending Physician: Baljinder Sharp M.D. Ordering Physician: Ahmet Astudillo D.O. Primary Care Physician: Rina Gold [facility] MEDICAL IMAGING REPORT This report is preliminary unless electronic signature is present EXAM Single view chest INDICATION Shortness of air and chest pain. Hypertension for 1 day. FINDINGS Single portable AP view of the chest compared to 05/17/2015. Cardiac size is borderline enlarged. Lung volumes are low. There is bilateral pleural effusions with associated airspace opacities. No pneumothorax. IMPRESSION 1. Low lung volumes. 2. Bibasilar airspace opacities and pleural effusions. Dictated by... Bo Putnam M.D. THIS IS AN ELECTRONICALLY VERIFIED REPORT Bo Putnam M.D. at 01/06/2017 8:57 AM Oc TD: 01/06/2017 08:52 JOB #: [id number] MEDICAL IMAGING REPORT Page 1 of 1 COPY
--- NOTE | ~2017-01-05 | CR72 ---
[facility] A Service of [facility] RADIOLOGY TEXT RESULTS PATIENT: LOLI BEAR III LOCATION: CIC3 CICCU09-10 : [birth year] UNIT #: [id number] AGE: [address]: LISA PETE V SEX: M ORDER DR: [id number] [facility] [address] [place], [place] [address] [id number] I MR#: [id number] Acc #: [id number] NAME: LOLI BEAR III : 1985 SEX: M STUDY DATE/TIME: 01/06/2017 0:49 UNIT: CEDOF ROOM: 76898 STUDY DESCRIPTION: CR Chest Single View Portable Attending Physician: Lisa Pete Ordering Physician: Ahmet Astudillo D.O. Primary Care Physician: Rina Davishead MEDICAL IMAGING REPORT This report is preliminary unless electronic signature is present EXAM Portable chest INDICATION PICC line placement. PROCEDURE Frontal view chest. COMPARISON 01/05/2017 2123 hours. FINDINGS Right approach PICC line at the cavoatrial junction. No pneumothorax. Otherwise stable. IMPRESSION 1. Right approach PICC line is at the cavoatrial junction. No pneumothorax. 2. Persistent low lung volumes. Otherwise stable. Dictated by... Devendra Pascual M.D. THIS IS AN ELECTRONICALLY VERIFIED REPORT Devendra Pascual M.D. at 01/06/2017 10:03 PM EEDwight/lila TD: 01/06/2017 09:52 JOB #: [id number] MEDICAL IMAGING REPORT [facility] A Service of [facility] RADIOLOGY TEXT RESULTS PATIENT: LOLI BEAR III LOCATION: CICCU3 CICCU09-10 : [birth year] UNIT #: [id number] AGE: [address]: LISA PETE V SEX: M ORDER DR: Page 1 of 1 COPY
--- NOTE | ~2017-01-05 | CT4 ---
[facility] A Service of [facility] RADIOLOGY TEXT RESULTS PATIENT: LOLI BEAR III LOCATION: CICCU3 CICCU3 : [birth year] UNIT #: [id number] AGE: [address]: RAMBO PETEUJ V SEX: M ORDER DR: [id number] [facility] [address] [facility]. [place], [place] [address] [id number] I MR#: [id number] #: [id number] NAME: LOLI BEAR III : 1985 SEX: M STUDY DATE/TIME: 01/05/2017 22:13 UNIT: CEDOF ROOM: [id number] STUDY DESCRIPTION: CT Abd and Pelv Wo Cont Attending Physician: Baljinder Sharp M.D. Ordering Physician: Ahmet Astudillo D.O. Primary Care Physician: Rina [facility] IMAGING REPORT This report is preliminary unless electronic signature is present EXAM CT abdomen and pelvis without contrast INDICATION Generalized abdominal pain and jaundice today. PROCEDURE Unenhanced CT of the abdomen and pelvis. This CT examination was performed with one or more of the following radiation dose reduction techniques: automatic exposure control, adjustment of mA and/or kV according to patient size, and iterative reconstruction. COMPARISON 10/08/2016. FINDINGS Refer to separately dictated chest CT. ABDOMEN WITHOUT CONTRAST: Liver enlarged measuring 21.4 cm. Diffuse hepatic steatosis. Spleen measures 15.3 cm. Kidneys, adrenal glands, pancreas show no definite acute abnormality. There is high-attenuation material in the gallbladder. Bowel loops are nondilated. There is moderate to moderately large volume of ascites throughout the abdomen and pelvis. Appendix normal. PELVIS WITHOUT CONTRAST: No radiodense bladder calculus. No pelvic mass. No aggressive appearing bone lesion. IMPRESSION 1. Hepatomegaly and splenomegaly with diffuse steatosis. 2. Ascites throughout the abdomen and pelvis new compared with the prior. 3. High-attenuation material in the gallbladder, uncertain etiology. Possibly sludge. [facility] A Service [facility] RADIOLOGY TEXT RESULTS PATIENT: LOLI BEAR III LOCATION: CICCU3 CICCU3 : [birth year] UNIT #: [id number] AGE: [address]: LISA PETE V SEX: M ORDER DR: 4. Refer to the separately dictated CT of the chest for thoracic findings. Dictated by... Devendra Pascual M.D. THIS IS AN ELECTRONICALLY VERIFIED REPORT Devendra Pascual M.D. at 01/06/2017 10:03 PM JEANNINE/lila TD: 01/06/2017 09:19 JOB #: [id number] MEDICAL IMAGING REPORT Page 1 of 1 COPY
--- NOTE | ~2017-01-05 | EKG ---
PATIENT: LOLI BEAR UNIT #: [id number] Ventricular Rate: 106 BPM Atrial Rate: 106 BPM P-R Interval: 134 ms QRS Duration: 88 ms Q-T Interval: 338 ms QTC Calculation(Bezet): 448 ms P [place]: 0 degrees Calculated R [place]: -16 degrees Calculated T [place]: -10 degrees Diagnosis Line: Sinus tachycardia Diagnosis Line: Inferior infarct , age undetermined Diagnosis Line: Cannot rule out Anterior infarct , age Diagnosis Line: undetermined Diagnosis Line: Abnormal ECG Diagnosis Line: No previous ECGs available Diagnosis Line: Confirmed by CHRIS SMITH MD ([id number]) on Diagnosis Line: 01/06/2017 9:36:20 AM INTERPRETING MD: SARAH MARTÍNEZ
--- NOTE | ~2017-01-05 | CR72 ---
[facility] A Service of [facility] RADIOLOGY TEXT RESULTS PATIENT: LOLI BEAR III LOCATION: [place] [address]-21 : [birth year] UNIT #: [id number] AGE: [address]: LISA PETE V SEX: M ORDER DR: [id number] [facility] [address] [facility]. [place], [place] [address] [id number] I MR#: [id number] Acc #: [id number] NAME: LOLI BEAR III : 1985 SEX: M STUDY DATE/TIME: 01/06/2017 6:06 UNIT: [facility] ROOM: [facility] STUDY DESCRIPTION: CR Chest Single View Portable Attending Physician: Lisa Pete Ordering Physician: Ahmet Astudillo D.O. Primary Care Physician: Rina Das MEDICAL IMAGING REPORT This report is preliminary unless electronic signature is present EXAM Portable chest 01/06/2017 INDICATION Bilateral pleural effusions. Chest pain, shortness of air for 1 day. COMPARISON Earlier the same day. FINDINGS This portable view of the chest again shows very low lung volumes with what appear to be small bilateral effusions and bibasilar atelectasis. Heart size is normal. The PIC catheter is in good position. Dictated by... Jorje Borja M.D. THIS IS AN ELECTRONICALLY VERIFIED REPORT Jorje Borja M.D. at 01/06/2017 11:40 AM SHELIA/lila TD: 01/06/2017 10:43 JOB #: [id number] MEDICAL IMAGING REPORT Page 1 of 1 COPY
[~2017-01-05 21:03] MED LIST changes: +NO MEDICATIONS
[2017-01-05 21:37] LABS: BASOPHIL% 0.2 % (0-2.5); EOSINOPHIL% 0.3 % (0.0-7.0); HEMATOCRIT 36.6 % (38.0-50.0); HEMOGLOBIN 12.5 gm/dL (13.0-16.0); LYMPHOCYTE# 0.2 X10e3 (1.0-3.5); LYMPHOCYTE% 4.3 % (17.0-45.0); MEAN CELL VOLUME 106.2 FL (83-96); MEAN CORPUSCULAR HEMOGLOBIN 36.4 PG (28-34); MEAN CORPUSCULAR HGB CONC 34.3 g/dL (30-36); MEAN PLATELET VOLUME 9.7 FL (6.5-11.5); MONOCYTE# 0.1 X10e3 (0-1.0); MONOCYTE% 1.9 % (3.0-12.0); NEUTROPHIL# 4.1 X10e3 (1.5-7.1); NEUTROPHIL% 93.3 % (40-75); PLATELET COUNT 126 X10e3 (140-420); RED BLOOD COUNT 3.45 X10e (3.90-5.60); RED CELL DISTRIBUTION WIDTH 16.9 % (11.0-15.5); WHITE BLOOD COUNT 4.4 X10e3 (4.0-10.5)
[2017-01-05 21:40] LABS: DIFF IND YES
[2017-01-05 21:55] LABS: ARTERIAL BLOOD GAS CARBOXY HB 2.4 %sat (0.0-9.0); ARTERIAL BLOOD GAS HCO3 19.2 mmol/L; ARTERIAL BLOOD GAS MET HB 0.1 %sat (0.0-2.0); ARTERIAL BLOOD GAS PCO2 35.6 mmHg (35.0-45.0)
[2017-01-05 21:56] LABS: ARTERIAL BLOOD GAS ART SITE LEFT BRACHIAL; ARTERIAL BLOOD GAS DELIVERY NASAL CANNULA; ARTERIAL BLOOD GAS PO2 63.7 mmHg (80.0-100); ARTERIAL DRAW? YES
[2017-01-05 22:02] LABS: POC - CKMB 1.2 ng/mL (0.0-7.9); POC - TROPONIN <0.05 ng/mL (<=0.05)
[2017-01-05 22:08] LABS: ANISOCYTOSIS SL; PLATELET ESTIMATE DECREASED (NORMAL); TARGET CELLS MOD
[2017-01-06 00:42] LABS: POC - CKMB 1.1 ng/mL (0.0-7.9); POC - TROPONIN <0.05 ng/mL (<=0.05)
[2017-01-06 01:09] LABS: BASOPHIL% 0.5 % (0-2.5); EOSINOPHIL% 0.1 % (0.0-7.0); HEMATOCRIT 37.1 % (38.0-50.0); HEMOGLOBIN 12.4 gm/dL (13.0-16.0); LYMPHOCYTE# 0.2 X10e3 (1.0-3.5); LYMPHOCYTE% 2.5 % (17.0-45.0); MEAN CELL VOLUME 108.2 FL (83-96); MEAN CORPUSCULAR HGB CONC 33.3 g/dL (30-36); MEAN PLATELET VOLUME 9.7 FL (6.5-11.5); MONOCYTE# 0.3 X10e3 (0-1.0); MONOCYTE% 4.3 % (3.0-12.0); NEUTROPHIL# 7.4 X10e3 (1.5-7.1); NEUTROPHIL% 92.6 % (40-75); PLATELET COUNT 110 X10e3 (140-420); RED BLOOD COUNT 3.43 X10e (3.90-5.60); RED CELL DISTRIBUTION WIDTH 17.4 % (11.0-15.5)
[2017-01-06 01:12] LABS: DIFF IND NO
[2017-01-06 01:27] LABS: INR 2.3; PROTHROMBIN TIME (PATIENT) 24.8 SECONDS (10.0-11.7)
[2017-01-06 02:22] LABS: ALBUMIN SERUM 1.5 g/dL (3.5-5.0); BILIRUBIN,INDIRECT 10.6 mg/dL (0.0-0.9); BILIRUBIN,TOTAL 24.5 mg/dL (0.2-2.0); BUN/CREATININE RATIO 2.94; CALCIUM SERUM 7.5 mg/dL (8.4-10.2); CREATININE SERUM 3.4 mg/dL (0.6-1.4); GLOM FILT RATE Estimated 23.1 mL/min (>60); POTASSIUM 3.4 mmol/L (3.5-5.1)
[2017-01-06 02:23] LABS: BILIRUBIN, DIRECT 13.9 mg/dL (0.0-0.2)
[2017-01-06 03:19] LABS: ARTERIAL BLD GAS O2 SATURATION 87.4 % (90.0-100.0); ARTERIAL BLOOD GAS CARBOXY HB 0.9 %sat (0.0-9.0); ARTERIAL BLOOD GAS HCO3 15.4 mmol/L; ARTERIAL BLOOD GAS MET HB 0.4 %sat (0.0-2.0); ARTERIAL BLOOD GAS PCO2 30.9 mmHg (35.0-45.0); ARTERIAL BLOOD GAS pH 7.304 (7.350-7.450)
[2017-01-06 03:22] LABS: ARTERIAL BLOOD GAS ART SITE LEFT BRACHIAL; ARTERIAL BLOOD GAS DELIVERY OXYMIZER; ARTERIAL BLOOD GAS PO2 65.1 mmHg (80.0-100); ARTERIAL DRAW? YES
[2017-01-06 03:47] LABS: URINE SOURCE CLEAN CATCH
[2017-01-06 04:07] LABS: URINE APPEARANCE CLOUDY; URINE COLOR BROWN; URINE PH 6.5 (5-8); URINE SPECIFIC GRAVITY 1.015 (1.003-1.035)
[2017-01-06 04:08] LABS: URINE GLUCOSE 50 MG/DL (NEG); URINE KETONE NEG (NEG); URINE LEUKOCYTE ESTERASE NEG (NEG); URINE NITRATE NEG (NEG); URINE PROTEIN 1+ (NEG)
[2017-01-06 04:09] LABS: URINE BLOOD 1+ (NEG)
[2017-01-06 04:11] LABS: URINE BILIRUBIN POS (NEG); URINE ICTOTEST POS (NEG)
[2017-01-06 04:15] LABS: CULTURE INDICATED? YES; URINE BACTERIA AUWI 1+ (NEGATIVE); URINE SQUAMOUS EPITHELIAL CELL OCCAS /[HPF]
[2017-01-06 04:16] LABS: URINE AMORPHOUS SEDIMENT AMORP URATES
[2017-01-06 07:47] LABS: ALCOHOL BLOOD 127 mg/dL ([0,])
[2017-01-06 07:48] LABS: ACETAMINOPHEN <10 ug/mL
[2017-01-06 10:40] LABS: INR 3.2; PROTHROMBIN TIME (PATIENT) 34.7 SECONDS (10.0-11.7)
[2017-01-06 11:59] LABS: BASOPHIL% 0.1 % (0-2.5); EOSINOPHIL# 0.1 X10e3 (0-0.7); EOSINOPHIL% 0.9 % (0.0-7.0); HEMATOCRIT 38.8 % (38.0-50.0); LYMPHOCYTE# 0.7 X10e3 (1.0-3.5); LYMPHOCYTE% 5.6 % (17.0-45.0); MEAN CELL VOLUME 108.4 FL (83-96); MEAN CORPUSCULAR HEMOGLOBIN 36.4 PG (28-34); MEAN CORPUSCULAR HGB CONC 33.6 g/dL (30-36); MEAN PLATELET VOLUME 9.9 FL (6.5-11.5); MONOCYTE# 0.2 X10e3 (0-1.0); MONOCYTE% 1.7 % (3.0-12.0); NEUTROPHIL# 10.7 X10e3 (1.5-7.1); NEUTROPHIL% 91.7 % (40-75); RED BLOOD COUNT 3.58 X10e (3.90-5.60); RED CELL DISTRIBUTION WIDTH 17.3 % (11.0-15.5); WHITE BLOOD COUNT 11.7 X10e3 (4.0-10.5)
[2017-01-06 12:03] LABS: ARTERIAL BLD GAS O2 SATURATION 93.7 % (90.0-100.0); ARTERIAL BLOOD GAS CARBOXY HB 0.5 %sat (0.0-9.0); ARTERIAL BLOOD GAS HCO3 11.2 mmol/L; ARTERIAL BLOOD GAS MET HB 0.4 %sat (0.0-2.0); ARTERIAL BLOOD GAS PCO2 29.8 mmHg (35.0-45.0); ARTERIAL BLOOD GAS PO2 94.1 mmHg (80.0-100)
[2017-01-06 12:05] LABS: ARTERIAL BLOOD GAS ALLEN TEST NORMAL; ARTERIAL BLOOD GAS ART SITE RIGHT RADIAL; ARTERIAL BLOOD GAS DELIVERY HFNC; ARTERIAL BLOOD GAS pH 7.184 (7.350-7.450); ARTERIAL DRAW? YES
[2017-01-06 12:13] LABS: PLATELET COUNT 152 X10e3 (140-420)
[2017-01-06 12:14] LABS: DIFF IND NO
[2017-01-06 12:44] LABS: ALBUMIN SERUM 1.5 g/dL (3.5-5.0); BILIRUBIN,TOTAL 23.9 mg/dL (0.2-2.0); BUN/CREATININE RATIO 2.14; CALCIUM SERUM 7.5 mg/dL (8.4-10.2); CREATININE SERUM 4.2 mg/dL (0.6-1.4); GLOM FILT RATE Estimated 17.9 mL/min (>60); POTASSIUM 4.2 mmol/L (3.5-5.1); PROTEIN TOTAL SERUM 6.1 g/dL (6.0-8.3)
== END 2017-01-06 15:20 | DRG 871 ==
LOC: CED 21:03 → CEDOF 23:30 → CED 23:35 → CEDOF 01-06 09:40 → CICCU3 01-06 10:30
PROVIDERS: Emergency Medicine; Internal Medicine
PROC: 02HV33Z Insertion of Infusion Device into Superior Vena Cava, Percutaneous Approach (ICD-10-PCS; principal; 2017-01-06)
DX: A41.9 Sepsis, unspecified organism (principal); K65.2 Spontaneous bacterial peritonitis; J91.8 Pleural effusion in other conditions classified elsewhere; K81.0 Acute cholecystitis; K22.10 Ulcer of esophagus without bleeding; R09.02 Hypoxemia; B19.20 Unspecified viral hepatitis C without hepatic coma; F10.20 Alcohol dependence, uncomplicated; F41.9 Anxiety disorder, unspecified; F32.9 Major depressive disorder, single episode, unspecified; F17.210 Nicotine dependence, cigarettes, uncomplicated; K70.31 Alcoholic cirrhosis of liver with ascites
CPT/HCPCS: 36415; 36600; 71010; 71250; 74176; 80048; 80053; 80076; 81003; 82140; 82553; 82803; 82947; 83605; 83690; 84484; 85025; 85384; 85610; 85730; 86850; 86900; 86901; 87040; 87086; 93005; 96374; 96375; 99291; C9113; G0480; J0696; J1720; J1956; J2370; J2543; J3370; J3430; P9047